=== PATIENT | male | born 1950 | race Caucasian/White ===

== ENCOUNTER 2016-11-30 15:19 | Inpatient (IN) | payer MEDICARE ==
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
[2016-11-30 16:13] LABS: HEMATOCRIT 36.4 % (37.9-51.0); HEMOGLOBIN 11.5 g/dL (13.5-17.0); HGB HCT DIFFERENCE -1.9; MEAN CORPUSCULAR HEMOGLOBIN 33.1 pg (27.0-33.4); MEAN CORPUSCULAR HGB CONC 31.7 g/dL (32.0-36.0); MEAN CORPUSCULAR VOLUME 104 fl (80-97); RED BLOOD COUNT 3.49 10^6/uL (4.35-5.55); RED CELL DISTRIBUTION WIDTH 20.6 % (11.5-14.0); WHITE BLOOD COUNT 8.9 10^3/uL (4.0-10.5)
[2016-11-30 16:14] LABS: PARTIAL THROMBOPLASTIN TIME 45.8 SEC (23.5-35.8); PROTHROMBIN TIME 24.2 SEC (11.4-15.4)
[2016-11-30 16:34] LABS: BAND NEUTROPHILS % (MANUAL) 9 % (3-5); BASOPHILS % (MANUAL) 0 % (0-2); EOSINOPHILS % (MANUAL) 0 % (0-6); LYMPHOCYTES % (MANUAL) 0 % (13-45); TOTAL CELLS COUNTED 100
[2016-11-30 16:37] LABS: ANISOCYTOSIS 2+; OVALOCYTES 1+; POIKILOCYTOSIS 1+
[2016-11-30 17:28] LABS: ALANINE AMINOTRANSFERASE 36 U/L (21-72); ALBUMIN 2.7 g/dL (3.5-5.0); ALKALINE PHOSPHATASE 155 U/L (38-126); ANION GAP 14 (5-19); ASPARTATE AMINO TRANSFERASE 44 U/L (17-59); BILIRUBIN,DIRECT 0.7 mg/dL (0.0-0.3); BILIRUBIN,TOTAL 5.3 mg/dL (0.2-1.3); BLOOD UREA NITROGEN 25 mg/dL (7-20); CALCIUM 8.8 mg/dL (8.4-10.2); CARBON DIOXIDE 13 mmol/L (22-30); CHLORIDE 109 mmol/L (98-107); CREATININE RESULT 3.42 mg/dL (0.52-1.25); GLUCOSE 83 mg/dL (75-110); POTASSIUM 4.2 mmol/L (3.6-5.0); SODIUM 136.1 mmol/L (137-145); TOTAL PROTEIN 7.5 g/dL (6.3-8.2)
[2016-11-30] MEDS ORDERED: ALBUMIN HUMAN 50 ML IV ONE (18:26)
[2016-11-30] MEDS ORDERED: ONDANSETRON HCL INJ/PF 4 MG/2 ML SDV IV PRN (18:32)
[2016-11-30] MEDS ORDERED: IPRATROPIUM/ALBUTEROL 0.5-2.5 MG/3 ML AMPUL NEB PRN (18:32)
[2016-11-30] MEDS ORDERED: LACTULOSE SYRUP 20 GM/30 ML UDCUP PO SCH (18:45)
[2016-11-30 19:04] LABS: MAGNESIUM 1.8 mg/dL (1.6-2.3); PHOSPHORUS 3.2 mg/dL (2.5-4.5)
--- NOTE | 2016-11-30 19:19 | PDOC H&P ---
History of Present Illness Admission Date/PCP: ZORA MOJICAC History of Present Illness: NIYA BLOOD JR is a 66 year old male with a history of known alcoholic hepatitis who presents to the emergency department with increased abdominal pain , increased abdominal swelling, and fever. Patient reports that after new years he quit drinking and quit smoking cigarettes. He reports for the past week that he's had an increase in abdominal girth as well as interval development of wheezing without cough and shortness of breath. He admits to fever for 100.8 at home. He is referred to hospital service for acute on chronic renal failure, SBP, and worsening renal failure. Past Medical History Cardiac Medical History: Denies: Congestive Heart Failure, DVT, Myocardial Infarction, Hyperlipidema, Hypertension, Pulmonary Embolism Pulmonary Medical History: Denies: Asthma, Bronchitis, Chronic Obstructive Pulmonary Disease (COPD), Pneumonia, Tuberculosis Neurological Medical History: Denies: Seizures Endocrine Medical History: Denies: Diabetes Mellitus Type 1, Diabetes Mellitus Type 2, Hyperthyroidism, Hypothyroidism GI Medical History: Reports: Cirrhosis, Gastroesophageal Reflux Disease, Hepatitis - C Musculoskeltal Medical History: Denies: Arthritis Psychiatric Medical History: Reports: Depression Hematology: Denies: Anemia Past Surgical History Past Surgical History: Reports: Cholecystectomy Social History Information Source: Patient Lives with: Friend Smoking Status: Former Smoker Cigarettes Packs Per Day: 1 - quit smoking 3 weeks ago Frequency of Alcohol Use: Occasional - Last drink 3 weeks ago Hx Recreational Drug Use: No Drugs: None Hx Prescription Drug Abuse: No - Advance Directive Resuscitation Status: Do Not Resuscitate Surrogate healthcare decision maker:: josé miguel alfredo, friend Family History Family History: Hypertension, Malignancy, Other - Alcoholism Parental Family History Reviewed: Yes Children Family History Reviewed: Yes Sibling(s) Family History Reviewed.: Yes Medication/Allergy Home Medications: Ferrous Sulfate [Feosol 325 mg Tablet] 325 mg PO TID 10/06/15 Folic Acid 1 mg PO DAILY 10/06/15 Lansoprazole [Prevacid 15 mg Odt Tablet] 15 mg PO DAILY 10/06/15 Multivitamin [Multivitamins] 1 each PO DAILY 10/06/15 Spironolactone [Aldactone 25 mg Tablet] 25 mg PO BID 10/06/15 Thiamine HCl [Thiamine 100 mg Tablet] 50 mg PO DAILY 10/06/15 Tramadol HCl 50 mg PO BID 10/06/15 Tamsulosin HCl [Flomax 0.4 mg Cap.sr] 0.4 mg PO DAILY #0 cap.sr.24h 10/07/15 Levothyroxine Sodium [Synthroid 0.025 mg Tablet] 25 mcg PO DAILY 10/26/16 Nadolol 20 mg PO DAILY 10/26/16 Furosemide [Lasix 40 mg Tablet] 40 mg PO DAILY #0 10/29/16 Lactulose 30 ml PO Q8H #120 10/29/16 Levofloxacin [Levaquin 500 mg Tablet] 500 mg PO DAILY #10 tablet 10/29/16 Allergies/Adverse Reactions: No Known Allergies Allergy (Verified 10/26/16 23:43) Review of Systems Constitutional: PRESENT: chills, fatigue, fever(s), weakness, weight gain. ABSENT: headache(s), weight loss Eyes: ABSENT: visual disturbances Ears: ABSENT: hearing changes Nose, Mouth, and Throat: PRESENT: headache(s) Cardiovascular: PRESENT: dyspnea on exertion, edema, orthropnea. ABSENT: chest pain, palpitations Respiratory: PRESENT: dyspnea, other - Wheezing. ABSENT: cough, hemoptysis, sputum Gastrointestinal: PRESENT: abdominal pain, bloating. ABSENT: coffee ground emesis, constipation, diarrhea, dysphagia, hematemesis, hematochezia, melena, nausea, vomiting Genitourinary: ABSENT: dysuria, hematuria Musculoskeletal: ABSENT: joint swelling Integumentary: ABSENT: rash, wounds Neurological: ABSENT: abnormal gait, abnormal speech, confusion, dizziness, focal weakness, syncope Psychiatric: ABSENT: anxiety, depression, homidical ideation, suicidal ideation Endocrine: ABSENT: cold intolerance, heat intolerance, polydipsia, polyuria Hematologic/Lymphatic: PRESENT: easy bleeding, easy bruising Physical Exam Vital Signs: Temp Pulse Resp BP Pulse Ox 98.7 F 99 18 92/52 L 95 11/30/16 18:52 11/30/16 15:40 11/30/16 18:15 11/30/16 18:21 11/30/16 18:15 Intake & Output 11/29/16 11/30/16 12/01/16 06:59 06:59 06:59 Weight 87 kg General appearance: PRESENT: cooperative, mild distress, well-developed, well- nourished Head exam: PRESENT: atraumatic, normocephalic Eye exam: PRESENT: conjunctiva pink, EOMI, PERRLA, scleral icterus. ABSENT: conjunctival injection Ear exam: PRESENT: normal external ear exam Mouth exam: PRESENT: dry mucosa, tongue midline Teeth exam: PRESENT: poor dentation Neck exam: PRESENT: JVD. ABSENT: carotid bruit, lymphadenopathy, thyromegaly, tracheal deviation Respiratory exam: PRESENT: rales - Bibasilar, tachypnea. ABSENT: accessory muscle use, crackles, decreased breath sounds, retraction, rhonchi, wheezes Cardiovascular exam: PRESENT: RRR, +S1, +S2. ABSENT: diastolic murmur, gallop, rubs, systolic murmur Pulses: PRESENT: normal dorsalis pedis pul Vascular exam: PRESENT: normal capillary refill GI/Abdominal exam: PRESENT: ascites - Tense, hernia - Umbilical reducible, hypoactive bowel sounds, soft, tenderness - Mildly tender diffusely, other - caput medusa. ABSENT: distended, firm, guarding, mass, Boss's sign, organolmegaly, rebound, rigid Rectal exam: PRESENT: deferred Extremities exam: PRESENT: clubbing, +1 edema. ABSENT: calf tenderness, pedal edema Neurological exam: PRESENT: alert, awake, oriented to person, oriented to place , oriented to time, oriented to situation, CN II-XII grossly intact, other - Slightly slurred speech. ABSENT: motor sensory deficit Psychiatric exam: PRESENT: appropriate affect, normal mood. ABSENT: homicidal ideation, suicidal ideation Skin exam: PRESENT: dry, intact, warm. ABSENT: cyanosis, rash Results Laboratory Results: 11/30/16 15:36 11/30/16 16:55 11/30/16 11/30/16 11/30/16 15:36 15:47 16:55 WBC 8.9 RBC 3.49 L Hgb 11.5 L Hct 36.4 L MCV 104 H MCH 33.1 MCHC 31.7 L RDW 20.6 H Plt Count 81 L Seg Neutrophils % Not Reportable Lymphocytes % Not Reportable Monocytes % Not Reportable Eosinophils % Not Reportable Basophils % Not Reportable Absolute Neutrophils Not Reportable Absolute Lymphocytes Not Reportable Absolute Monocytes Not Reportable Absolute Eosinophils Not Reportable Absolute Basophils Not Reportable Sodium 136.1 L Potassium 4.2 Chloride 109 H Carbon Dioxide 13 L Anion Gap 14 BUN 25 H Creatinine 3.42 H Est GFR ( Amer) 22 L Est GFR (Non-Af Amer) 18 L Glucose 83 Calcium 8.8 Total Bilirubin 5.3 H AST 44 ALT 36 Alkaline Phosphatase 155 H Ammonia Cancelled Total Protein 7.5 Albumin 2.7 L 11/30/16 16:55 WBC RBC Hgb Hct MCV MCH MCHC RDW Plt Count Seg Neutrophils % Lymphocytes % Monocytes % Eosinophils % Basophils % Absolute Neutrophils Absolute Lymphocytes Absolute Monocytes Absolute Eosinophils Absolute Basophils Sodium Potassium Chloride Carbon Dioxide Anion Gap BUN Creatinine Est GFR ( Amer) Est GFR (Non-Af Amer) Glucose Calcium Total Bilirubin AST ALT Alkaline Phosphatase Ammonia 25.5 Total Protein Albumin Impressions: Chest X-Ray 11/30/16 15:55 IMPRESSION: LOW LUNG VOLUMES. NO SIGNIFICANT RADIOGRAPHIC FINDING IN THE CHEST. Assessment & Plan - Diagnosis (1) Peritonitis, spontaneous bacterial Is this a current diagnosis for this admission?: YesPlan: Currently, cefotaxime this on national backorder. Will initiate patient on Rocephin 2 g IV every 24 pending paracentesis. Will give patient albumin to him. Improved perfusion. Will stop nonselective beta kerry. (2) Acute renal failure Qualifiers: Acute renal failure type: unspecified Qualified Code(s): N17.9 - Acute kidney failure, unspecified Is this a current diagnosis for this admission?: YesPlan: Feel that this is likely a progression of patient's hepatorenal syndrome. Also may have a component of ATN due to dehydration. Will check UA and give albumin. Will attempt to avoid crystalloid at this time due to patient's severe ascites. (3) Cirrhosis Qualifiers: Hepatic cirrhosis type: alcoholic cirrhosis Ascites presence: with ascites Qualified Code(s): K70.31 - Alcoholic cirrhosis of liver with ascites Is this a current diagnosis for this admission?: Yes (4) GERD (gastroesophageal reflux disease) Qualifiers: Esophagitis presence: esophagitis presence not specified Qualified Code(s): K21.9 - Gastro-esophageal reflux disease without esophagitis Is this a current diagnosis for this admission?: YesPlan: PPI daily (5) Hepatorenal syndrome Is this a current diagnosis for this admission?: Yes (6) Portal hypertension Is this a current diagnosis for this admission?: Yes (7) Hepatitis C Qualifiers: Viral hepatitis chronicity: chronic Hepatic coma status: without hepatic coma Qualified Code(s): B18.2 - Chronic viral hepatitis C Is this a current diagnosis for this admission?: YesPlan: Continue lactulose (8) Pancytopenia Is this a current diagnosis for this admission?: YesPlan: Secondary to cirrhosis (9) Thrombocytopenia Is this a current diagnosis for this admission?: YesPlan: No DVT prophylaxis and her to this. We'll place MIGUEL henry (10) DNR (do not resuscitate) Is this a current diagnosis for this admission?: YesPlan: Patient is amenable to DO NOT RESUSCITATE. This is consistent with his past admissions and wishes. Patient's meld score is 33 giving him a 73% mortality rate over the next 90 days. Will discuss with his caregiver. Patient is awake alert and oriented we did discuss this. At this time he would like us to attempt treatment. (11) Coagulopathy Is this a current diagnosis for this admission?: YesPlan: Will type and screen and give patient FFP to attempt to correct his coagulopathy in order to receive a paracentesis. - Time Time Spent: 50 to 70 Minutes Medications reviewed and adjusted accordingly: Yes - Inpatient Certification Based on my medical assessment, after consideration of the patient's comorbidities, presenting symptoms, or acuity I expect that the services needed warrant INPATIENT care.: Yes I certify that my determination is in accordance with my understanding of Medicare's requirements for reasonable and necessary INPATIENT services [42 CFR 412.3e].: Yes Medical Necessity: Need For Continuous Telemetry Monitoring, Need for IV Antibiotics, Risk of Diagnosis Which Will Require Inpatient Eval/Care/Monitoring Post Hospital Care: D/C Director Pharmacovigilance Documentation
[2016-11-30] MEDS ORDERED: ALBUMIN HUMAN 150 ML IV ONE (19:27)
[2016-11-30] MEDS: ALBUMIN HUMAN 50 ML IV SCH ×3 (19:48→23:00)
[2016-11-30] MEDS: CEFTRIAXONE 2 GM/D5W RTU 50 ML IV SCH (20:51)
[2016-12-01] MEDS: ALBUMIN HUMAN 50 ML IV SCH ×5 (00:33→23:30)
[2016-12-01 06:57] LABS: ALANINE AMINOTRANSFERASE 36 U/L (21-72); ALBUMIN 2.9 g/dL (3.5-5.0); ALKALINE PHOSPHATASE 98 U/L (38-126); ANION GAP 15 (5-19); ASPARTATE AMINO TRANSFERASE 34 U/L (17-59); BILIRUBIN,DIRECT 0.7 mg/dL (0.0-0.3); BILIRUBIN,TOTAL 4.2 mg/dL (0.2-1.3); BLOOD UREA NITROGEN 29 mg/dL (7-20); CALCIUM 8.7 mg/dL (8.4-10.2); CARBON DIOXIDE 12 mmol/L (22-30); CHLORIDE 109 mmol/L (98-107); CREATININE RESULT 4.07 mg/dL (0.52-1.25); GLUCOSE 80 mg/dL (75-110); MAGNESIUM 1.9 mg/dL (1.6-2.3); PHOSPHORUS 4.9 mg/dL (2.5-4.5); POTASSIUM 4.8 mmol/L (3.6-5.0); SODIUM 135.5 mmol/L (137-145); TOTAL PROTEIN 6.5 g/dL (6.3-8.2)
[2016-12-01 07:00] LABS: PROTHROMBIN TIME 29.5 SEC (11.4-15.4)
[2016-12-01] MEDS ORDERED: NORMAL SALINE 250 ML IV PRN ×2 (07:39)
[2016-12-01] MEDS ORDERED: NORMAL SALINE 1000 ML 1,000 ML IV PRN (07:39)
[2016-12-01 08:20] LABS: ABSOLUTE LYMPHOCYTES (AUTO) 0.8 10^3/uL (0.5-4.7); ABSOLUTE MONOCYTES (AUTO) 0.7 10^3/uL (0.1-1.4); ABSOLUTE NEUT (AUTO) 9.9 10^3/uL (1.7-8.2); BASOPHILS % (AUTO) 0.1 % (0-2); EOSINOPHILS % (AUTO) 0.1 % (0-6); HEMATOCRIT 29.6 % (37.9-51.0); HEMOGLOBIN 9.5 g/dL (13.5-17.0); HGB HCT DIFFERENCE -1.1; LYMPHOCYTES % (AUTO) 7.2 % (13-45); MEAN CORPUSCULAR HEMOGLOBIN 33.9 pg (27.0-33.4); MEAN CORPUSCULAR HGB CONC 32.2 g/dL (32.0-36.0); MEAN CORPUSCULAR VOLUME 105 fl (80-97); MONOCYTES % (AUTO) 5.7 % (3-13); RED BLOOD COUNT 2.81 10^6/uL (4.35-5.55); RED CELL DISTRIBUTION WIDTH 20.6 % (11.5-14.0); SEGMENTED NEUTROPHILS % (AUTO) 86.9 % (42-78); WHITE BLOOD COUNT 11.4 10^3/uL (4.0-10.5)
[2016-12-01] MEDS ORDERED: PHYTONADIONE INJ 10 MG/1 ML AMPULE SUBCUT ONE (09:00)
[2016-12-01] MEDS: LANSOPRAZOLE 15 MG TAB.RAP.DR PO SCH (09:41)
[2016-12-01] MEDS: TAMSULOSIN HCL 0.4 MG CAP.SR.24H PO SCH (09:41)
[2016-12-01] MEDS: TRAMADOL HCL 50 MG TABLET PO SCH ×2 (09:42→19:00)
[2016-12-01] MEDS: LEVOTHYROXINE SODIUM 0.025 MG TABLET PO SCH (09:42)
[2016-12-01] MEDS: THIAMINE HCL 100 MG TABLET PO SCH (09:42)
[2016-12-01] MEDS: CEFTRIAXONE 2 GM/D5W RTU 50 ML IV SCH (09:43)
--- NOTE | 2016-12-01 09:53 | Physician Advisory Note ---
Physician Advisor ProgressNote .: Pursuant to the plan for [facility], I have reviewed the medical record for this patient. Physician Advisor Statement: Excellent documentation of ARF/type, mortality risk.... Possible documentation opportunities if attending agrees: 1. "Acute metabolic acidosis, likely due to ___" [ARF?] Status: Pt with advanced cirrhosis (EtOH + chr hep C, w/portal HTN, chronic pancytopenia ), with evidence of acute SBP as well as worsening hepatorenal syndrome, worsening overnight since adm, w/ARF, Ac Metab Acidosis, leukocytosis, hyponatremia, & coagulopathy that is preventing safe paracentesis though attending certainly wants to do dx-ic & therapeutic paracentesis in this case, as appropriate. Pt at extremely high risk of not just further worsening but at this point even with maximal medical interventions - most certainly if not cared for in hospital at this time. Tx in inpatient hospital setting medically reasonable & necessary to protect pt's health, safety, & medical condition. Appropriate for Inpt status. Thanks for your help with documentation accuracy/specificity improvement! Liz Shay MD [facility] Physician Advisor, Fellow of Hospital Medicine
[2016-12-01] MEDS ORDERED: FOLIC ACID 1 MG TABLET PO SCH (10:00)
[2016-12-01 12:58] LABS: ARTERIAL BLOOD O2 SATURATION 96.9 % (94-98)
--- NOTE | 2016-12-01 16:17 | PDOC PROGRESS REPORT ---
Subjective Progress Note for:: 12/01/16 Subjective:: Patient reports he's had 9 liquid stools today since receiving his lactulose. He denies any worsening abdominal pain, fevers, chills, chest pain, shortness of breath, nausea, vomiting. Patient is noted to be quite linear and practical. Physical Exam Vital Signs: Temp Pulse Resp BP Pulse Ox 98.1 F 99 19 97/50 L 97 12/01/16 06:53 11/30/16 15:40 12/01/16 05:31 12/01/16 05:32 12/01/16 05:32 Exam: General: Awake alert and oriented x3, no acute respiratory distress HEENT: AT/NC, PERRL, EOMI, oropharynx is moist, pink, noted scleral icterus, no conjunctival injection Neck: + JVD,+HJR, trachea midline Chest: Clear to auscultation bilaterally, no wheezes rhonchi or rales CV: Regular rate and rhythm, normal S1 and S2, no murmur, rub, or gallop Abdomen: Soft, nontender to palpation, nondistended, active bowel sounds; no rebound, rigidity, or guarding Extremities: No cyanosis, clubbing or edema Neuro: Cranial nerves II through XII are grossly intact without focal deficits; awake alert and oriented x3 Psych: Normal mood and affect Results Laboratory Results: 12/01/16 06:28 12/01/16 06:28 12/01/16 12/01/16 12/01/16 06:28 06:28 06:28 WBC Cancelled RBC Cancelled Hgb Cancelled Hct Cancelled MCV Cancelled MCH Cancelled MCHC Cancelled RDW Cancelled Plt Count Cancelled Seg Neutrophils % Cancelled Lymphocytes % Cancelled Monocytes % Cancelled Eosinophils % Cancelled Basophils % Cancelled Absolute Neutrophils Cancelled Absolute Lymphocytes Cancelled Absolute Monocytes Cancelled Absolute Eosinophils Cancelled Absolute Basophils Cancelled Sodium 135.5 L Potassium 4.8 Chloride 109 H Carbon Dioxide 12 L Anion Gap 15 BUN 29 H Creatinine 4.07 H Est GFR ( Amer) 18 L Est GFR (Non-Af Amer) 15 L Glucose 80 Calcium 8.7 Phosphorus 4.9 H Magnesium 1.9 Total Bilirubin 4.2 H AST 34 ALT 36 Alkaline Phosphatase 98 Ammonia 18.8 Total Protein 6.5 Albumin 2.9 L Impressions: Chest X-Ray 11/30/16 15:55 IMPRESSION: LOW LUNG VOLUMES. NO SIGNIFICANT RADIOGRAPHIC FINDING IN THE CHEST. Assessment & Plan - Diagnosis (1) Peritonitis, spontaneous bacterial Is this a current diagnosis for this admission?: YesPlan: Currently, cefotaxime this on national backorder. Patient on Rocephin 2 g IV every 24 pending paracentesis. Will give patient albumin to him after paracentesis. Will stop nonselective beta kerry. (2) Acute renal failure Qualifiers: Acute renal failure type: unspecified Qualified Code(s): N17.9 - Acute kidney failure, unspecified Is this a current diagnosis for this admission?: YesPlan: Feel that this is likely a progression of patient's hepatorenal syndrome. Also may have a component of ATN due to dehydration. Discussed with patient and he reported that he would not want dialysis if his renal failure were to progress. Will refrain from unnecessarily consult taking nephrology for this. (3) Cirrhosis Qualifiers: Hepatic cirrhosis type: alcoholic cirrhosis Ascites presence: with ascites Qualified Code(s): K70.31 - Alcoholic cirrhosis of liver with ascites Is this a current diagnosis for this admission?: YesPlan: Patient reports that he is willing to go on hospice if nothing more can be done. He does want a therapeutic paracentesis. He would like us to try to make him better. (4) GERD (gastroesophageal reflux disease) Qualifiers: Esophagitis presence: esophagitis presence not specified Qualified Code(s): K21.9 - Gastro-esophageal reflux disease without esophagitis Is this a current diagnosis for this admission?: YesPlan: PPI daily (5) Hepatorenal syndrome Is this a current diagnosis for this admission?: Yes (6) Portal hypertension Is this a current diagnosis for this admission?: Yes (7) Hepatitis C Qualifiers: Viral hepatitis chronicity: chronic Hepatic coma status: without hepatic coma Qualified Code(s): B18.2 - Chronic viral hepatitis C Is this a current diagnosis for this admission?: Yes (8) Pancytopenia Is this a current diagnosis for this admission?: YesPlan: Secondary to cirrhosis (9) Thrombocytopenia Is this a current diagnosis for this admission?: YesPlan: No DVT prophylaxis and her to this. We'll place MIGUEL henry (10) DNR (do not resuscitate) Is this a current diagnosis for this admission?: YesPlan: Patient is amenable to DO NOT RESUSCITATE. This is consistent with his past admissions and wishes. Patient's meld score is 36 giving him a 81% mortality rate over the next 90 days. Will discuss with his caregiver. Patient is awake alert and oriented we did discuss this. At this time he would like us to attempt treatment. (11) Coagulopathy Is this a current diagnosis for this admission?: Yes (12) Metabolic acidemia Is this a current diagnosis for this admission?: YesPlan: Secondary to renal failure. ABG done reveals a normal pH. Patient is currently compensated. - Time Time Spent with patient: 25-34 minutes Medications reviewed and adjusted accordingly: Yes
[2016-12-01 17:33] LABS: FLUID APPEARANCE CLOUDY; FLUID RBC SIDE 1 95; FLUID TYPE PERITONEAL
[2016-12-01 17:34] LABS: FLUID RBC AVERAGE 91.5; FLUID RBC SIDE 2 88
[2016-12-01 17:35] LABS: FLUID RBC DILUENT USED SALINE; FLUID RBC DILUTION FACTOR 20; TOTAL RBC SQUARES COUNTED FLD 225
[2016-12-01 17:37] LABS: PROTHROMBIN TIME 24.7 SEC (11.4-15.4)
[2016-12-01 17:38] LABS: PARTIAL THROMBOPLASTIN TIME 53.1 SEC (23.5-35.8)
[2016-12-02 06:38] LABS: ABSOLUTE LYMPHOCYTES (AUTO) 0.6 10^3/uL (0.5-4.7); ABSOLUTE MONOCYTES (AUTO) 0.7 10^3/uL (0.1-1.4); ABSOLUTE NEUT (AUTO) 4.7 10^3/uL (1.7-8.2); BASOPHILS % (AUTO) 0.2 % (0-2); EOSINOPHILS % (AUTO) 0.7 % (0-6); HEMATOCRIT 25.1 % (37.9-51.0); HEMOGLOBIN 8.3 g/dL (13.5-17.0); HGB HCT DIFFERENCE -0.2; LYMPHOCYTES % (AUTO) 9.9 % (13-45); MEAN CORPUSCULAR HEMOGLOBIN 34.1 pg (27.0-33.4); MEAN CORPUSCULAR HGB CONC 33.2 g/dL (32.0-36.0); MEAN CORPUSCULAR VOLUME 103 fl (80-97); MONOCYTES % (AUTO) 11.6 % (3-13); RED BLOOD COUNT 2.44 10^6/uL (4.35-5.55); RED CELL DISTRIBUTION WIDTH 20.1 % (11.5-14.0); SEGMENTED NEUTROPHILS % (AUTO) 77.6 % (42-78); WHITE BLOOD COUNT 6.1 10^3/uL (4.0-10.5)
[2016-12-02 06:49] LABS: PROTHROMBIN TIME 26.9 SEC (11.4-15.4)
[2016-12-02 06:50] LABS: ALANINE AMINOTRANSFERASE 39 U/L (21-72); ALKALINE PHOSPHATASE 91 U/L (38-126); ANION GAP 14 (5-19); ASPARTATE AMINO TRANSFERASE 40 U/L (17-59); BILIRUBIN,TOTAL 2.2 mg/dL (0.2-1.3); BLOOD UREA NITROGEN 38 mg/dL (7-20); CALCIUM 8.6 mg/dL (8.4-10.2); CARBON DIOXIDE 14 mmol/L (22-30); CHLORIDE 109 mmol/L (98-107); GLUCOSE 62 mg/dL (75-110); POTASSIUM 4.5 mmol/L (3.6-5.0); SODIUM 136.7 mmol/L (137-145); TOTAL PROTEIN 6.6 g/dL (6.3-8.2)
[2016-12-02 07:29] LABS: ANISOCYTOSIS 2+; BURR CELLS SLIGHT; HYPOCHROMASIA 1+; OVALOCYTES SLIGHT; POIKILOCYTOSIS 1+; SCHISTOCYTES SLIGHT
--- NOTE | 2016-12-02 09:21 | PDOC PROGRESS REPORT ---
Subjective Progress Note for:: 12/02/16 Subjective:: Patient complains of continued chronic back pain. Patient denies fever, chills, headache, new focal weakness, chest pain, shortness of breath, abdominal pain, nausea, vomiting, diarrhea, constipation. Physical Exam Vital Signs: Temp Pulse Resp BP Pulse Ox 97.6 F 60 20 116/80 100 12/02/16 07:37 12/02/16 07:37 12/02/16 07:37 12/02/16 07:37 12/02/16 07:37 Intake & Output 12/01/16 12/02/16 12/03/16 06:59 06:59 06:59 Intake Total 854 Balance 854 Weight 81 kg GENERAL: No acute distress HEENT: Conjunctiva clear, sclera icteric, moist mucous membranes, no JVD, midline trachea RESPIRATORY: Clear to auscultation bilaterally, no wheezes, no rhonchi CARDIAC: Regular rate and rhythm, no murmurs/gallops/rubs ABDOMEN: Soft, very distended, obvious ascites EXTREMETIES: No edema, cyanosis, clubbing NEUROLOGIC: Alert, oriented to person/place/time, CN's grossly intact, no focal deficits SKIN: No rash, wounds PSYCH: Normal mood, normal affect Results Laboratory Results: 12/02/16 05:49 12/02/16 05:49 12/01/16 12/01/16 12/01/16 07:54 12:45 16:03 WBC RBC Hgb Hct MCV MCH MCHC RDW Plt Count Seg Neutrophils % Lymphocytes % Monocytes % Eosinophils % Basophils % Absolute Neutrophils Absolute Lymphocytes Absolute Monocytes Absolute Eosinophils Absolute Basophils Carbonic Acid 0.79 L HCO3/H2CO3 Ratio 18:1 ABG pH 7.35 ABG pCO2 26.2 L ABG pO2 91.6 ABG HCO3 14.3 L ABG O2 Saturation 96.9 ABG Base Excess -10.0 FiO2 ROOM AIR Sodium Potassium Chloride Carbon Dioxide Anion Gap BUN Creatinine Est GFR ( Amer) Est GFR (Non-Af Amer) Glucose Calcium Total Bilirubin AST ALT Alkaline Phosphatase Total Protein Albumin Fluid Type PERITONEAL Fluid Source ASCITES Fluid Color DARK YELLOW Fluid Appearance CLOUDY Fluid Viscosity LIQUID Fluid WBC 3817 Fluid RBC 2033 Blood Type A POSITIVE Antibody Screen NEGATIVE 12/01/16 12/02/16 12/02/16 16:03 05:49 05:49 WBC 6.1 RBC 2.44 L Hgb 8.3 L Hct 25.1 L MCV 103 H MCH 34.1 H MCHC 33.2 RDW 20.1 H Plt Count 39 L Seg Neutrophils % 77.6 Lymphocytes % 9.9 L Monocytes % 11.6 Eosinophils % 0.7 Basophils % 0.2 Absolute Neutrophils 4.7 Absolute Lymphocytes 0.6 Absolute Monocytes 0.7 Absolute Eosinophils 0.0 Absolute Basophils 0.0 Carbonic Acid HCO3/H2CO3 Ratio ABG pH ABG pCO2 ABG pO2 ABG HCO3 ABG O2 Saturation ABG Base Excess FiO2 Sodium 136.7 L Potassium 4.5 Chloride 109 H Carbon Dioxide 14 L Anion Gap 14 BUN 38 H Creatinine 4.50 H Est GFR ( Amer) 16 L Est GFR (Non-Af Amer) 13 L Glucose 62 L Calcium 8.6 Total Bilirubin 2.2 H AST 40 ALT 39 Alkaline Phosphatase 91 Total Protein 6.6 Albumin 3.0 L Fluid Type Cancelled Fluid Source Cancelled Fluid Color Cancelled Fluid Appearance Cancelled Fluid Viscosity Cancelled Fluid WBC Cancelled Fluid RBC Cancelled Blood Type Antibody Screen Impressions: Chest X-Ray 11/30/16 15:55 IMPRESSION: LOW LUNG VOLUMES. NO SIGNIFICANT RADIOGRAPHIC FINDING IN THE CHEST. Paracentesis Ultrasound 12/01/16 00:00 IMPRESSION: Successful ultrasound-guided diagnostic and therapeutic paracentesis Assessment & Plan - Diagnosis (1) Peritonitis, spontaneous bacterial Is this a current diagnosis for this admission?: YesPlan: Discontinue IV antibiotics. Start oral doxycycline and Flagyl. (2) Cirrhosis Qualifiers: Hepatic cirrhosis type: alcoholic cirrhosis Ascites presence: with ascites Qualified Code(s): K70.31 - Alcoholic cirrhosis of liver with ascites Is this a current diagnosis for this admission?: YesPlan: Patient has end-stage liver disease and end-stage renal disease. He is agreeable to hospice per our conversation today. He plans on discharging home with hospice services tomorrow. (3) Acute on chronic renal failure Is this a current diagnosis for this admission?: Yes (4) Alcohol dependence Qualifiers: Substance use status: unspecified alcohol-induced disorder Qualified Code(s): F10.29 - Alcohol dependence with unspecified alcohol-induced disorder Is this a current diagnosis for this admission?: Yes (5) Hepatitis C Qualifiers: Viral hepatitis chronicity: chronic Hepatic coma status: without hepatic coma Qualified Code(s): B18.2 - Chronic viral hepatitis C Is this a current diagnosis for this admission?: Yes (6) Thrombocytopenia Is this a current diagnosis for this admission?: YesPlan: Associated with end-stage liver disease. (7) Metabolic acidemia Is this a current diagnosis for this admission?: YesPlan: Secondary to renal failure. (8) DNR (do not resuscitate) Is this a current diagnosis for this admission?: Yes - Time Time Spent with patient: 35 or more minutes Anticipated discharge: Hospice Within: within 24 hours
[2016-12-02] MEDS ORDERED: MULTIVITAMIN TABLET PO SCH (10:00)
[2016-12-02] MEDS ORDERED: CEFTRIAXONE 2 GM/D5W RTU 2 GM/50 ML RTUPB IV SCH (10:00)
[2016-12-02] MEDS: LEVOTHYROXINE SODIUM 0.025 MG TABLET PO SCH (10:17)
[2016-12-02] MEDS: LACTULOSE SYRUP 20 GM/30 ML UDCUP PO SCH ×2 (10:18→21:55)
[2016-12-02] MEDS: LANSOPRAZOLE 15 MG TAB.RAP.DR PO SCH (10:18)
[2016-12-02] MEDS: OXYCODONE HCL IR 5 MG TABLET PO PRN ×2 (10:19→21:59)
[2016-12-02] MEDS: TAMSULOSIN HCL 0.4 MG CAP.SR.24H PO SCH (10:19)
[2016-12-02] MEDS: THIAMINE HCL 100 MG TABLET PO SCH (10:19)
[2016-12-02] MEDS: DOXYCYCLINE HYCLATE 100 MG TABLET PO SCH ×2 (10:20→21:57)
--- NOTE | 2016-12-02 11:44 | EKG REPORT ---
SEVERITY:- OTHERWISE NORMAL ECG - SINUS RHYTHM WITH APC's. : Confirmed by: Carmela Costello MD 02-Dec-2016 11:43:25
[2016-12-02] MEDS: METRONIDAZOLE 500 MG TABLET PO SCH ×2 (14:53→21:57)
[2016-12-03] MEDS: METRONIDAZOLE 500 MG TABLET PO SCH ×2 (05:13→13:20)
[2016-12-03] MEDS: LEVOTHYROXINE SODIUM 0.025 MG TABLET PO SCH (09:09)
[2016-12-03] MEDS: LACTULOSE SYRUP 20 GM/30 ML UDCUP PO SCH (09:09)
[2016-12-03] MEDS: THIAMINE HCL 100 MG TABLET PO SCH (09:09)
[2016-12-03] MEDS: LANSOPRAZOLE 15 MG TAB.RAP.DR PO SCH (09:09)
[2016-12-03] MEDS: TAMSULOSIN HCL 0.4 MG CAP.SR.24H PO SCH (09:09)
[2016-12-03] MEDS: DOXYCYCLINE HYCLATE 100 MG TABLET PO SCH (09:10)
[2016-12-03] MEDS: OXYCODONE HCL IR 5 MG TABLET PO PRN (09:13)
--- NOTE | 2016-12-03 13:17 | PDOC DISCHARGE SUMMARY ---
General - Admit/Disc Date/PCP Admission Date/Primary Care Provider: 11/30/16 18:32 CODY MOJICA Discharge Date: 11/30/16 - Discharge Diagnosis (1) Peritonitis, spontaneous bacterial Is this a current diagnosis for this admission?: Yes (2) Cirrhosis Is this a current diagnosis for this admission?: Yes (3) Acute on chronic renal failure Is this a current diagnosis for this admission?: Yes (4) Alcohol dependence Is this a current diagnosis for this admission?: Yes (5) Hepatitis C Is this a current diagnosis for this admission?: Yes (6) Thrombocytopenia Is this a current diagnosis for this admission?: Yes (7) Metabolic acidemia Is this a current diagnosis for this admission?: Yes (8) DNR (do not resuscitate) Is this a current diagnosis for this admission?: Yes - Additional Information Resuscitation Status: Do Not Resuscitate Discharge Diet: Regular Discharge Activity: Activity As Tolerated Home Medications: Furosemide [Lasix 20 mg Tablet] 20 mg PO DAILY 12/01/16 Lactulose [Cephulac Syrup 20 gm/30 ml Udcup] 20 gm PO Q8 12/01/16 Lansoprazole [Prevacid 15 mg Odt Tablet] 15 mg PO DAILY 12/01/16 Levothyroxine Sodium [Synthroid 0.025 mg Tablet] 0.025 mg PO DAILY 12/01/16 Nadolol [Corgard] 20 mg PO DAILY 12/01/16 Spironolactone [Aldactone 25 mg Tablet] 25 mg PO BID 12/01/16 Tamsulosin HCl [Flomax 0.4 mg Cap.sr] 0.4 mg PO DAILY 12/01/16 Doxycycline Hyclate [Vibramycin 100 mg Tablet] 100 mg PO Q12 #20 tablet Metronidazole [Flagyl 500 mg Tablet] 500 mg PO Q8 #30 tablet 12/03/16 Oxycodone HCl [Oxy-Ir 5 mg Tablet] 10 mg PO Q6HP PRN #20 tablet 12/03/16 Tamsulosin HCl [Flomax 0.4 mg Cap.sr] 0.4 mg PO DAILY cap.sr.24h 12/03/16 History of Present Illness Patient complains of: Abdominal pain History of Present Illness: NIYA Faisal BLOOD JR is a 66 year old male with end-stage liver disease that presented to the emergency department with abdominal pain, increased abdominal swelling, and fever. Hospital Course Hospital Course: Patient was admitted and treated for spontaneous bacterial peritonitis. He has end-stage liver disease with associated hepatorenal syndrome. After discussions in the hospital patient was made comfort measures only and will be discharged home with home hospice. He underwent diagnostic/therapeutic paracentesis with removal of 7000 mL fluid. Physical Exam Vital Signs: Temp Pulse Resp BP Pulse Ox 97.6 F 62 17 95/46 L 100 12/02/16 19:35 12/02/16 19:35 12/02/16 19:35 12/02/16 19:35 12/02/16 19:35 Intake & Output 12/02/16 12/03/16 12/04/16 06:59 06:59 06:59 Intake Total 854 1420 Balance 854 1420 Weight 81 kg 82.8 kg GENERAL: No acute distress HEENT: Conjunctiva clear, sclera icteric, moist mucous membranes, no JVD, midline trachea RESPIRATORY: Clear to auscultation bilaterally, no wheezes, no rhonchi CARDIAC: Regular rate and rhythm, no murmurs/gallops/rubs ABDOMEN: Soft, very distended, obvious ascites EXTREMETIES: No edema, cyanosis, clubbing NEUROLOGIC: Alert, oriented to person/place/time, CN's grossly intact, no focal deficits SKIN: No rash, wounds PSYCH: Normal mood, normal affect Results Laboratory Results: 12/02/16 05:49 12/02/16 05:49 Impressions: Chest X-Ray 11/30/16 15:55 IMPRESSION: LOW LUNG VOLUMES. NO SIGNIFICANT RADIOGRAPHIC FINDING IN THE CHEST. Paracentesis Ultrasound 12/01/16 00:00 IMPRESSION: Successful ultrasound-guided diagnostic and therapeutic paracentesis Qualifiers PATEINT BEING DISCHARGED WITH ANY OF THE FOLLOWING DIAGNOSIS?: No Plan Discharge Plan: Discharge home with home hospice. Time Spent: Less than 30 Minutes
[2016-12-03 13:59] VITALS: BP 103/63
== END 2016-12-03 16:30 | disposition hospice, home (50) | DRG 371 ==
LOC: ER 15:19 → EH 18:32 → UNDOADMIN 18:51 → 3W 12-01 19:31
PROVIDERS: ADMIT Family Medicine; ATTEND Family Medicine
PROC: 0W9G3ZX Drainage of Peritoneal Cavity, Percutaneous Approach, Diagnostic (ICD-10-PCS; principal; 2016-12-01)
PROC: 30233R1 Transfusion of Nonautologous Platelets into Peripheral Vein, Percutaneous Approach (ICD-10-PCS; 2016-12-01)
PROC: 3E0F73Z Introduction of Anti-inflammatory into Respiratory Tract, Via Natural or Artificial Opening (ICD-10-PCS; 2016-12-01)
DX: K65.2 Spontaneous bacterial peritonitis (principal); K76.7 Hepatorenal syndrome; N17.9 Acute kidney failure, unspecified; F10.29 Alcohol dependence with unspecified alcohol-induced disorder; K76.6 Portal hypertension; D61.818 Other pancytopenia; N18.9 Chronic kidney disease, unspecified; F32.9 Major depressive disorder, single episode, unspecified; Y90.0 Blood alcohol level of less than 20 mg/100 ml; K70.31 Alcoholic cirrhosis of liver with ascites; D69.6 Thrombocytopenia, unspecified; Z66 Do not resuscitate; B18.2 Chronic viral hepatitis C; K21.9 Gastro-esophageal reflux disease without esophagitis; M19.90 Unspecified osteoarthritis, unspecified site; Z90.49 Acquired absence of other specified parts of digestive tract; Z60.2 Problems related to living alone; Z79.899 Other long term (current) drug therapy; Z87.891 Personal history of nicotine dependence; Z82.49 Family history of ischemic heart disease and other diseases of the circulatory system; Z81.1 Family history of alcohol abuse and dependence; Z80.9 Family history of malignant neoplasm, unspecified
CPT/HCPCS: 36415; 36430; 36600; 49083; 71010; 80053; 80307; 82140; 82803; 83735; 84100; 85025; 85610; 85730; 86850; 86900; 86901; 87070; 87075; 87205; 89050; 93005; 93010; 94640; 99291; G8978-GP; G8979-GP; G8980-GP; J0696; J3430; J7030; J7620; P9017; P9047